=== PATIENT | female | born 1970 | race African-American/Black ===

== ENCOUNTER 2018-01-27 03:04 | Emergency (ER) | payer BC ==
[2018-01-27 03:27] LABS: #Basophils 0.2 thou/uL (0.0-0.2); #Eosinphils 0.3 thou/uL (0.0-0.7); #Lymphocytes 2.3 thou/uL (1.20-3.40); #Monocytes 0.6 thou/uL (0.11-0.59); #Neutrophils 1.9 thou/uL (1.40-6.50); %Basophils 2.9 % (0.0-1.0); %Eosinophils 5.8 % (0.0-10.0); %Lymphocytes 44.2 % (21.0-51.0); %Neutrophils 36.1 % (42.0-75.0); Hemoglobin 13.5 g/dL (12.0-16.0); Mean Corpuscular HGB CONC 34.3 g/dL (32.0-36.0); Mean Corpuscular Volume 84.7 fL (78.0-98.0); Platelet Count 224 thou/uL (130-400); RBC Distribution Width 10.9 % (11.5-14.5); Red Blood Cell (RBC) Count 4.65 mill/uL (4.20-5.40); White Blood Cell (WBC) Count 5.3 thou/uL (4.8-10.8)
[2018-01-27 03:43] LABS: CKMB 1.2 ng/mL (0-6.6); Troponin I Less than 0.010 ng/mL (< 0.028)
[2018-01-27 04:01] LABS: ALT (SGPT) 30 U/L (8-55); AST (SGOT) 23 U/L (5-34); Albumin 3.8 g/dL (3.5-5.0); Alkaline Phosphatase 90 U/L (40-150); Anion Gap 12 mmol/L (10-20); BUN (Urea Nitrogen) 8 mg/dL (7.0-18.7); Bilirubin, Total 0.4 mg/dL (0.2-1.2); Calc. Creatinine Clearance 0 mL/min (70-130); Calcium 9.4 mg/dL (7.8-10.44); Carbon Dioxide 24 mmol/L (22-29); Chloride 109 mmol/L (98-107); Estimated GFR-MDRD 88; Globulin 2.9 g/dL (2.4-3.5); Glucose 95 mg/dL (70-105); Protein, Total 6.7 g/dL (6.0-8.3); Sodium 141 mmol/L (136-145)
--- NOTE | 2018-01-27 08:06 | RAD ---
2 VIEWS CHEST: Date: 01/27/18 PROVIDED CLINICAL HISTORY: Chest pain. FINDINGS: Comparison made with study dated 06/11/09. Cardiac and mediastinal silhouette is within normal limits. Lungs appear clear. No pleural fluid or p neumothorax apparent. IMPRESSION: No evidence for an acute cardiopulmonary process. POS: [facility]
== END 2018-01-27 04:45 | disposition home or self-care (01) ==
LOC: SCSER 03:04
DX: R07.9 Chest pain, unspecified (principal)
CPT/HCPCS: 71046; 80053; 82553; 84484; 85025; 93005